=== PATIENT | female | born 1975 | race Caucasian/White ===

== ENCOUNTER 2018-02-11 07:55 | Emergency (ER) | payer SELFPAY ==
[~2018-02-11] VITALS: Ht 167.6 cm; Wt 56.6 kg
[~2018-02-11 07:55] MED LIST: CLIN300C10 PO; GABA400C14 PO
[2018-02-11 07:57] VITALS: BP 135/92; PULSE 79; RESP 20; Ht 167.6 cm; Wt 56.6 kg
[2018-02-11] MEDS ORDERED: ELIM TOP ×2 (08:14→08:22)
--- NOTE | 2018-02-11 08:35 | ERD ---
ER Documentation Chief Complaint Chief Complaint Complains of a rash possible scabies infection HPI Patient is a 42-year-old female with a history of scabies who presents to the ED for concerns of recurrent scabies. Patient states she is homeless and she is living in her car. Patient states that the rash is itchy. Patient is requesting refill of permethrin cream. Patient denies any fevers or chills. Patient denies any new creams, lotions, medications or foods. ROS All systems reviewed and are negative except as per history of present illness. Medications Home Meds Active Scripts Permethrin* (Elimite*) 5% Cr, 1 APPLIC TOP ONCE, #2 TUB Use as drirected today. If no relief, use again 2 weeks Prov:FRANCISCO BRADY PA-C 02/11/18 Clindamycin Hcl* (Clindamycin Hcl*) 300 Mg Capsule, 300 MG PO TID for 10 Days, CAP Prov:ALYCE SALAS PA-C 11/05/15 Clindamycin Hcl* (Clindamycin Hcl*) 300 Mg Capsule, 300 MG PO Q8 for 10 Days, CAP Prov:ERIC DUNN MD 10/23/15 Reported Medications Gabapentin* (Gabapentin*) 400 Mg Capsule, 400 MG PO TID, #90 CAP 10/23/15 Allergies Allergies: Coded Allergies: No Known Allergy (Unverified , 10/23/15) PMhx/Soc History of Surgery: No Anesthesia Reaction: No Hx Neurological Disorder: No Hx Respiratory Disorders: No Hx Cardiac Disorders: No Hx Psychiatric Problems: No Hx Alcohol Use: No Hx Substance Use: No Hx Tobacco Use: No Smoking Status: Current every day smoker FmHx Family History: No diabetes Physical Exam Vitals Vital Signs Date Temp Pulse Resp B/P (MAP) Pulse Ox O2 O2 Flow FiO2 Time Delivery Rate 02/11/18 97.5 79 20 135/92 98 07:57 (106) Physical Exam GENERAL: Well-developed, well-nourished female. Appears in no acute distress. Speaking in full sentences. HEAD: Normocephalic, atraumatic. EYES: Pupils are equally reactive bilaterally. EOMs grossly intact. No conjunctival erythema. ENT: No lip swelling. Tolerating secretions well. NECK: Supple. No meningismus. Normal range of motion of the neck. LUNG: No respiratory distress HEART: Regular rate and rhythm. No murmurs, rubs or gallops. EXTREMITIES: Equal pulses bilaterally. No peripheral clubbing, cyanosis or edema. No unilateral leg swelling. NEUROLOGIC: Alert and oriented. Moving all four extremities without any difficulty. Normal speech. Steady gait. SKIN: Dry excoriated skin noted on bilateral hands with burning noted in the webspaces. Procedures/MDM MEDICAL DECISION MAKING: This is a 42-year-old female presents ER for concerns of recurrent scabies. Patient brings in friend who also has similar symptoms. Vital signs were reviewed. Patient was afebrile. Patient will be treated with course of permethrin cream and advised to repeat cream in 1 week if symptoms persist. Low suspicion for necrotizing fasciitis, sepsis, gangrene, Michael-Flavio syndrome, toxic epidural necrolysis, abscess, cellulitis, herpes zoster, viral exanthem, anaphylaxis, allergic reaction, allergic contact dermatitis, irritant contact dermatitis, impetigo, dermatitis. She was nontoxic, non-ill appearing prior to discharge. PRESCRIPTIONS: Permethrin cream DISCHARGE: At this time, patient is stable for discharge and outpatient management. I have advised the patient to avoid any new products, creams or possible allergens. I have advised the patient to avoid scratching the lesions. I have instructed the patient to follow-up with his/her primary care physician in 1-2 days. If symptoms persist, patient may need to see a machine stapler for further examinations and testing. I have instructed the patient to promptly return to the ER at any time for any new or worsening symptoms including increased pain, fever, redness, swelling, warmth, difficulty breathing or vomiting. The patient and/or family expressed understanding of and agreement with this plan. All questions were answered. Home care instructions were provided. Disclaimer: Inadvertent spelling and grammatical errors are likely due to EHR/dictation software use and do not reflect on the overall quality of patient care. Also, please note that the electronic time recorded on this note does not necessarily reflect the actual time of the patient encounter. Departure Diagnosis: Primary Impression: Rash and other nonspecific skin eruption Condition: Stable Patient Instructions: Scabies Referrals: COMMUNITY CLINICS YOU HAVE RECEIVED A MEDICAL SCREENING EXAM AND THE RESULTS INDICATE THAT YOU DO NOT HAVE A CONDITION THAT REQUIRES URGENT TREATMENT IN THE EMERGENCY DEPARTMENT. FURTHER EVALUATION AND TREATMENT OF YOUR CONDITION CAN WAIT UNTIL YOU ARE SEEN IN YOUR DOCTORS OFFICE WITHIN THE NEXT 1-2 DAYS. IT IS YOUR RESPONSIBILITY TO MAKE AN APPOINTMENT FOR FOLOW-UP CARE. IF YOU HAVE A PRIMARY DOCTOR --you should call your primary doctor and schedule an appointment IF YOU DO NOT HAVE A PRIMARY DOCTOR YOU CAN CALL OUR PHYSICIAN REFERRAL HOTLINE AT IF YOU CAN NOT AFFORD TO SEE A PHYSICIAN YOU CAN CHOSE FROM THE FOLLOWING [facility] [address] [facility] [address] [facility] [address] [facility] [address] [facility] [address] [facility] [facility] [address] [facility]. [facility] YOU HAVE RECEIVED A MEDICAL SCREENING EXAM AND THE RESULTS INDICATE THAT YOU DO NOT HAVE A CONDITION THAT REQUIRES URGENT TREATMENT IN THE EMERGENCY DEPARTMENT. FURTHER EVALUATION AND TREATMENT OF YOUR CONDITION CAN WAIT UNTIL YOU ARE SEEN IN YOUR DOCTORS OFFICE WITHIN THE NEXT 1-2 DAYS. IT IS YOUR RESPONSIBILITY TO MAKE AN APPOINTMENT FOR FOLOW-UP CARE. IF YOU HAVE A PRIMARY DOCTOR --you should call your primary doctor and schedule and appointment IF YOU DO NOT HAVE A PRIMARY DOCTOR YOU CAN CALL OUR PHYSICIAN REFERRAL HOTLINE AT . IF YOU CAN NOT AFFORD TO SEE A PHYSICIAN YOU CAN CHOSE FROM THE FOLLOWING [facility] INSTITUTIONS: [facility] [address] [place] [address] [facility] [address] [place] [address] [facility] + [facility] [address] [place] [address] Additional Instructions: Call your primary care doctor TOMORROW for an appointment during the next 1-2 days.See the doctor sooner or return here if your condition worsens before your appointment time. FRANCISCO BRADY PA-C Feb 11, 2018 08:35
== END 2018-02-11 08:42 | disposition home or self-care (01) ==
LOC: FTE 07:55
DX: R21 Rash and other nonspecific skin eruption (principal); F17.210 Nicotine dependence, cigarettes, uncomplicated
CPT/HCPCS: 99282